=== PATIENT | female | born 1950 | race Caucasian/White ===

== ENCOUNTER 2017-03-22 15:38 | Observation (INO) | payer MEDICARE ==
[2017-03-22] MEDS ORDERED: Ondansetron HCl/PF 4 MG/2 ML Vial ONE (16:17)
[2017-03-22 17:18] LABS: Troponin I Less than 0.010 ng/mL (< 0.028)
[2017-03-22] MEDS ORDERED: ISOVUE-370 76%-LOCM 1 ML ONE (17:36)
[2017-03-22 20:31] LABS: Troponin I Less than 0.010 ng/mL (< 0.028)
[2017-03-22] MEDS ORDERED: Fentanyl 100 MCG/2 ML VIAL ONE (23:19)
--- NOTE | 2017-03-22 23:52 | CT ---
CT PULMONARY ANGIOGRAM WITH IV CONTRAST AND 3D POSTPROCESSIN03/22/17 HISTORY: Left sided chest pain. FINDINGS: There is good contrast opacification of pulmonary arterial vasculature without filling defects to sug gest pulmonary embolism. The thoracic aorta is well opacified without aneurysmal dissection. No pleur al or pericardial effusions are seen. No pneumothoraces, lobar consolidation or lung bases are identi fied. There are mild patchy ground glass densities in the lower lung aldana. There are degenerative c hanges in the spine. IMPRESSION: No CT evidence of pulmonary embolism. POS: CHEKO
[2017-03-23 00:43] LABS: Troponin I Less than 0.010 ng/mL (< 0.028)
[2017-03-23] MEDS ORDERED: Nitroglycerin 0.4 MG TAB (25 Tab Bottle) PO PRN (03:49)
[2017-03-23] MEDS ORDERED: Aspirin 325 MG TAB PO SCH (04:00)
[2017-03-23 05:14] LABS: Troponin I Less than 0.010 ng/mL (< 0.028)
--- NOTE | 2017-03-23 06:39 | HP ---
CHIEF COMPLAINT: Chest pain for last 3 days. HISTORY OF PRESENT ILLNESS: She is a 66-year-old woman with a history of coronary artery disease, st atus post stent placement so many years ago and ME in 2004. She came in because of having some chest pain for the last 3 days. The pain is like achy pain on the left side, squeezy pain, 3/10, pain rad iated to the left arm, and pain comes and goes. Pain does increase with exertion. No shortness of b reath, no diaphoresis. Because of this, the patient has decided to come to ER. When she came to ER, her blood pressure 129/81, pulse 64, respirations 18, temperature is 98.0. In the ER, she was given nitroglycerin, aspirin first. Her pain continued to be occurred. HOME MEDICATIONS: Crestor 40 mg daily, glipizide 10 mg daily, lisinopril 20 mg daily, Plavix 75 nirmala y, metformin 500 daily, Januvia 100 mg daily, aspirin 325 daily. PAST MEDICAL HISTORY: History of myocardial infarction in the past, hypertension. PAST SURGICAL HISTORY: Appendectomy, . SOCIAL HISTORY: No alcohol use, no drug use, no smoking history. In the ER, medicine given was fentanyl injection and Zofran for the vomiting. FAMILY HISTORY: Noncontributory. REVIEW OF SYSTEMS: Constitutional: No fever, no chills. Eyes: No vision change. ENT: No sore throat, no earache. Cardiovascular: She does have chest pain, left side. No dyspnea on exertion, no palpitation. Respiratory: No cough, no short of breath. Gastrointestinal: No constipation, no nausea, no vomiting. Musculoskeletal: No back pain. Neurolo gic: She has some dizziness, no headache, no blurry vision. PHYSICAL EXAMINATION: GENERAL: When I examined her, she is a middle-aged woman lying in the bed, not in distress. VITAL SIGNS: Pulse of 69, blood pressure 107/52, respirations 20, temperature 98.4. HEENT: Head is atraumatic, normocephalic. Pupils are round and reactive. Extraocular muscles are i ntact. Ears, throat normal. Tongue mucosa moist. NECK: Supple, no JVD, no thyromegaly, no carotid bruit. CHEST: Normal vesicular breathing, no added sound. CARDIOVASCULAR: S1, S2 audible. No S3, S4. ABDOMEN: Soft. Bowel sounds audible, no organomegaly, no guarding or rigidity. EXTREMITIES: No pedal edema. No cyanosis or clubbing. LABORATORY AND X-RAY FINDINGS: EKG shows sinus bradycardia at 55, nonspecific T wave inversions. He r lab shows D-dimer 0.9, troponin 0.010. CTA chest shows no evidence of pulmonary embolism. ASSESSMENT AND PLAN: Unstable angina. PLAN: We plan to admit into the hospital to rule ACS, serial troponins, serial echocardiogram. Love nox 1 mg/kg daily, aspirin, Plavix, statin, and beta jermaine. Cardiology will be consulted. IV morp jorge luis and nitroglycerin for the pain. DVT prophylaxis, SCDs and Lovenox.
[2017-03-23] MEDS ORDERED: Clopidogrel Bisulfate 75 MG TAB ONE (10:40)
[2017-03-23] MEDS ORDERED: Aspirin 325 MG TAB ONE (10:40)
[2017-03-23] MEDS ORDERED: Metoprolol Tartrate 25 MG TAB ONE (10:40)
[2017-03-23 11:46] VITALS: BMI 26.6
[2017-03-23] MEDS: Aspirin 325 MG TAB PO SCH (11:47)
[2017-03-23] MEDS: Clopidogrel Bisulfate 75 MG TAB PO SCH (11:47)
[2017-03-23] MEDS: Metoprolol Tartrate 25 MG TAB PO SCH ×2 (11:48→22:16)
--- NOTE | 2017-03-23 13:30 | PDOC.EVN ---
Event Note - Event Note Event Note: Patient sen today, Alert snd oriented, Admitted with Chest pain, Likely pleuritic, Cardiology is consulted waiting on his Plan. Reviewed all the labs and Vitals. Tropoinins are negative. Echo is pending. Likely pt Discharge home tomorrow.
[2017-03-23] MEDS ORDERED: Communication Order-Pharmacy FS SCH (14:15)
[2017-03-23] MEDS ORDERED: Sodium Chloride 0.9% 1,000 ML IV SCH (14:15)
[2017-03-23] MEDS ORDERED: FLU VACC TS2017-18 (>65YR) 0.5 ML SYRINGE IM ONE (14:15)
--- NOTE | 2017-03-23 14:25 | CON ---
DATE OF CONSULTATION: 03/23/2017 REASON FOR CONSULTATION: Unstable angina. Please refer to Dr. Sow's note for full details. Briefly, Ms. Read is a very pleasant 66-year-old woman who has been seen and evaluated by Dr. Eugene De Los Santos. Her last angiogram was performed 7 years ago. She has had a stent placed in the LAD. She recently presented with chest pain over the last 3-4 days. Pain occurred at rest, lasting 5-7 mi nutes. It was severe in nature intermittently. She also had radiation to her neck and jaw as well a s associated nausea, vomiting. She continues to have mild discomfort. Her CK and troponins have bee n negative. Please refer to past medical history per Dr. Sow. PHYSICAL EXAMINATION: GENERAL: Patient is a pleasant female who is in no acute distress. The patient appears her stated a ge. VITAL SIGNS: Blood pressure 115/54, pulse 54, temperature 98.1. NEUROLOGIC: The patient is alert and oriented times 3 with no focal neurologic deficits. HEENT: Sclerae without icterus. Mouth has moist mucous membranes with normal pallor. NECK: No JVD. Carotid upstroke brisk. No bruits bilaterally. LUNGS: Clear to auscultation with unlabored respirations. BACK: No scoliosis or kyphosis. CARDIAC: Regular rate and rhythm with normal S1 and S2. No S3 or S4 noted. No significant rubs, mu rmurs, thrills, or gallops noted throughout the precordium. PMI is not displaced. There is no teja ternal heave. ABDOMEN: Soft, nontender, nondistended. No peritoneal signs present. No hepatosplenomegaly. No abnormal striae. EXTREMITIES: 2+ femoral and 2+ dorsalis pedis pulses. No cyanosis, clubbing, or edema. SKIN: No gross abnormalities. PERTINENT LABORATORY DATA AND IMAGING DATA: 1. CK and troponin negative. 2. EKG showed normal sinus rhythm with biphasic T waves noted in lead V5. IMPRESSION: Unstable angina. RECOMMENDATIONS: Ms. Read symptoms certainly suggest a cardiac origin. She has a history of CAD, s tatus post stent placement. She has abnormal EKG. We would therefore recommend coronary angioplasty , possible PCI. I discussed the procedure in full detail with Ms. Read. The risks included but are not limited to the following: , stroke, MN, need for emergency surgery, loss of limb, bleeding , and infection, as well as a reaction to the dye causing kidney failure and needing long-term dialys is. I also discussed the risks of PCI to include all of the above including coronary dissection and perforation in addition to acute stent thrombosis and restenosis. All questions about the procedure were answered. Given the above, the patient agreed to proceed with coronary angiography and possible PCI. I also discussed drug-coated versus nondrug coated stent placement. There are no contraindica tions to proceed if needed. Further recommendations depending above.
--- NOTE | 2017-03-23 14:51 | CON-2 ---
DATE OF CONSULTATION: 03/23/2017 DATE OF ADMISSION: 03/22/2017 CHIEF COMPLAINT: Chest pain. HISTORY OF PRESENT ILLNESS: The patient is a 66-year-old female with past history of coronary artery disease with 1 stent to the LAD, history of hypertension, diabetes mellitus type 2, who presented as a transfer from the [facility] for intermittent chest pain for the past 3 days. The patient states that the chest pain occurs every 2-3 hours and lasts several minutes at a time. She states that the pain is dull/squeezing in nature and ranges anywhere from 4-10/10 in intensity. The pain is left-sided and radiates into her neck. Pain occurs without provocation. She states that there are no exacerbating or alleviating factors. The patient states that this pain feels different from her prior heart attack that she had in 2007. Patient underwent percutaneous coronary intervention in 2007 at this hospital. She had an episode of chest pain in 2015 and underwent having abnormal nuclear medicine stress test at that time. Prior to transfer to the hospital, she received 4000 units of heparin, 325 mg of aspirin and morphine 4 mg. She received fentanyl 15 mcg and Zofran 8 mg after transfer. PAST MEDICAL HISTORY: 1. Coronary artery disease with one stent to the LAD. 2. Diabetes mellitus type 2. 3. Hypertension. PAST SURGICAL HISTORY: 1. Appendectomy. 2. C-sections. ALLERGIES: 1. FLAGYL. 2. BIAXIN. MEDICATIONS: 1. Crestor 40 mg. 2. Glipizide 10 mg b.i.d. 3. Lisinopril 20 mg daily. 4. Plavix 75 mg daily. 5. Metformin 500 mg b.i.d. 6. Januvia 100 mg daily. 7. Aspirin 325 mg daily. 8. Multivitamin. FAMILY HISTORY: Patient's father had a stroke. SOCIAL HISTORY: The patient is a nonsmoker currently. She smokes 1 pack per day for 2-3 years and quit 5-6 years ago. She denies alcohol or drug use. REVIEW OF SYSTEMS: Pertinent systems include chest pain, nausea, vomiting, dizziness associated with her chest pain. All other review of systems are negative. PHYSICAL EXAMINATION: VITAL SIGNS: Blood pressure 109/55, pulse 62, respirations 18, T-max 98.1, pulse ox 97% on room air, weight 70 kilograms. GENERAL: The patient is alert and oriented x3 in no apparent distress. She is well-developed, well-nourished, appropriately interactive. EYES: Pupils are equal, round, and reactive to light. Extraocular muscles are intact. OROPHARYNX: Examination of the oropharynx reveals moist mucous membranes. NECK: Supple, no thyromegaly. CARDIOVASCULAR: Regular rate and rhythm with no murmurs or gallops. Radial and pedal pulses 2+. RESPIRATORY: Lungs are clear to auscultation bilaterally. SKIN: Warm and dry with no cyanosis or lesions. ABDOMEN: Soft, however, tender to palpation in the epigastrium and right lower quadrants. No guarding or rebound tenderness. No masses, distention or organomegaly. EXTREMITIES: No clubbing, cyanosis or edema. MUSCULOSKELETAL: Structure and tone within normal limits. NEUROLOGIC: Cranial nerves II through XII intact grossly. No focal deficits. LABORATORY DATA: Troponin negative x3. D-dimer 0.97. IMAGING: CTA with contrast was negative for pulmonary embolism. ASSESSMENT AND PLAN: The patient is a 66-year-old female with a history of coronary artery disease, diabetes and hypertension who presents with 3 days of chest pain. 1. Acute coronary syndrome rule-out. The patient's symptoms consistent with anginal chest pain. We will proceed for left heart catheterization today. Risks and benefits discussed extensively with the patient and the patient was given her consent. Continue medical management. If left heart catheterization is negative, other causes for chest pain can be pursued. MTDD
[2017-03-23] MEDS ORDERED: Midazolam HCl 2 mg/2 ml Vial ONE (14:59)
[2017-03-23] MEDS ORDERED: Acetaminophen/Codeine 30-300mg Tablet PO PRN ×2 (15:21)
[2017-03-23] MEDS ORDERED: traMADol HCl 50 MG TAB PO PRN (15:21)
[2017-03-23] MEDS ORDERED: Nitroglycerin 0.4 MG TAB (25 Tab Bottle) SL PRN (15:21)
[2017-03-23] MEDS ORDERED: Sodium Chloride 0.9% 200 ML IV PRN (15:30)
[2017-03-23] MEDS ORDERED: Iopamidol 370 76% 100 ML VIAL ONE (15:51)
[2017-03-23] MEDS: Sodium Chloride 0.9% 1,000 ML IV SCH ×2 (16:00→22:40)
[2017-03-24 05:21] LABS: Cardiac Risk 3.9 (Less than 4.5)
[2017-03-24] MEDS: Sodium Chloride 0.9% 1,000 ML IV SCH (06:50)
[2017-03-24] MEDS: Aspirin 325 MG TAB PO SCH (07:58)
[2017-03-24] MEDS: Clopidogrel Bisulfate 75 MG TAB PO SCH (07:58)
[2017-03-24] MEDS: Metoprolol Tartrate 25 MG TAB PO SCH (08:03)
[2017-03-24 09:23] VITALS: BP 133/63; TEMP 98.5
--- NOTE | 2017-03-24 12:16 | PRG ---
DATE OF SERVICE: 03/24/2017 SUBJECTIVE: Ms. Read is doing better today. She underwent cardiac catheterization yesterday by Dr. Dawson. She had no flow limiting disease in any of the major epicardial arteries. She does have a disease in her diagonal branch, really too small to stent. The patient will go home with all the medicines she came on in addition to nitroglycerin if needed. OBJECTIVE: VITAL SIGNS: Her blood pressure is 133/63, pulse 64, regular. LUNGS: Clear. CARDIAC: Normal S1 and S2. ABDOMEN: Soft, nontender. EXTREMITIES: There is no edema. ASSESSMENT: 1. Coronary disease, best treated medically 2. Hypercholesterolemia, being treated. 3. Episode of angina, probably related to the diagonal branch. She has been given nitroglycerin to take as needed, asked to see me in 2-3 months.
--- NOTE | 2017-03-24 13:07 | DIS ---
DATE OF ADMISSION: 03/23/2017 DATE OF DISCHARGE: 03/24/2017 ADMITTING DIAGNOSIS: Acute chest pain. DISCHARGE DIAGNOSIS: Acute chest pain, noncardiac. SECONDARY DIAGNOSES: 1. Bradycardia. 2. Unstable angina. 3. Hypertension. 4. Type 2 diabetes mellitus. 5. History of coronary artery disease. CONSULTANTS: Involved in the care are Dr. Hugo Dawson and Dr. Elizabeth Sow. HISTORY OF PRESENT ILLNESS AND HOSPITAL COURSE: In brief, this is a 66-year-old white female, who hutchins s a past history of coronary artery disease with 1 stent to the LAD, history of hypertension, type 2 diabetes mellitus, who presented to the ER after being transferred from [facility] with intermit tent chest pains. The patient was closely monitored while she was in the ER whole yesterday, and erika sely monitored for her persistent chest pains and had negative troponins. The patient underwent PTCA in 2007, during which she had a stent in the past. So, because of this, she was closely monitored a nd Cardiology was also consulted. Patient had a chest pain in 2015 and had an abnormal nuclear stres s test at that time. Patient had again a nuclear stress test done today after monitoring her serial troponins overnight, which was unremarkable, and there was no evidence of any further intervention. So, Cardiology decided to discharge the patient home to have a close followup as an outpatient. PHYSICAL EXAMINATION: On the day of discharge: VITAL SIGNS: Blood pressure is 133/63, heart rate is 65, respiratory rate 16, saturation 97%. GENERAL: The patient is moderately built and moderately nourished. CARDIOVASCULAR: S1, S2 normal. No murmurs, no rubs, no gallops. LUNGS: Bilateral air entry was equal. No wheezing, no crackles. ABDOMEN: Soft, nontender, no guarding, no rebound tenderness. Bowel sounds normal. MUSCULOSKELETAL: No calf tenderness. No pedal edema. No joint tenderness, no joint swelling. HOME MEDICATIONS: 1. Aspirin 325 p.o. daily. 2. Biotin. 3. Cholecalciferol. 4. Plavix 75 mg daily. 5. Glipizide 20 mg p.o. b.i.d. 6. Iron 27 mg p.o. daily. 7. Lisinopril 2.5 mg p.o. daily. 8. Lutein 20 mg p.o. daily. 9. Metformin 500 mg p.o. b.i.d. 10. Rosuvastatin 40 mg p.o. at bedtime. 11. Sitagliptin 100 mg p.o. daily. 12. Vitamin B complex. 13. Zinc 50 mg p.o. daily. DISCHARGE INSTRUCTIONS: Continue activity as tolerated. Advised to follow up with the primary care physician in 1 week and advised to follow up with Cardiology in 4 weeks. Continue with a cardiac and diabetic diet. I spent 30 minutes with this patient.
== END 2017-03-24 12:45 | disposition home or self-care (01) ==
LOC: ERS 15:38 → ERHOLD 03-23 00:15 → 2SW 03-23 00:15
PROVIDERS: ADMIT Family Medicine; ATTEND Family Medicine
DX: R07.89 Other chest pain (principal); I25.110 Atherosclerotic heart disease of native coronary artery with unstable angina pectoris; I10 Essential (primary) hypertension; I25.2 Old myocardial infarction; E78.00 Pure hypercholesterolemia, unspecified; E11.9 Type 2 diabetes mellitus without complications; Z87.891 Personal history of nicotine dependence; Z82.3 Family history of stroke; Z79.82 Long term (current) use of aspirin; Z79.84 Long term (current) use of oral hypoglycemic drugs; Z79.899 Other long term (current) drug therapy; Z88.1 Allergy status to other antibiotic agents; Z95.5 Presence of coronary angioplasty implant and graft; Z90.49 Acquired absence of other specified parts of digestive tract; Z98.890 Other specified postprocedural states
CPT/HCPCS: 71275; 80061; 84484 ×2; 85379; 90732; 93005; 93306; 93454; 93798; 94760 ×2; 96361 ×2; 96374; 96375; 99285; G0008; G0009; G0378 ×2; Q2036; 36415; 90471; 90682; A4216; J1644; J2250; J2405; J3010

== ENCOUNTER 2017-06-05 10:42 | Emergency (ER) | payer MEDICARE, MEDICAID ==
[2017-06-05] MEDS ORDERED: Morphine 4 MG/ML VIAL ONE (11:43)
[2017-06-05] MEDS ORDERED: Ondansetron HCl/PF 4 MG/2 ML Vial ONE (11:44)
[2017-06-05] MEDS ORDERED: Pantoprazole 40 MG VIAL ONE (11:44)
[2017-06-05 11:49] LABS: #Basophils 0.1 thou/uL (0.0-0.2); #Eosinphils 0.2 thou/uL (0.0-0.7); #Lymphocytes 3.3 thou/uL (1.20-3.40); #Monocytes 0.5 thou/uL (0.11-0.59); #Neutrophils 5.2 thou/uL (1.40-6.50); %Basophils 0.9 % (0.0-1.0); %Eosinophils 1.7 % (0.0-10.0); %Lymphocytes 35.4 % (21.0-51.0); %Monocytes 5.2 % (0.0-10.0); %Neutrophils 56.8 % (42.0-75.0); Hemoglobin 12.5 g/dL (12.0-16.0); Mean Corpuscular HGB CONC 31.7 g/dL (32.0-36.0); Mean Corpuscular Hemoglobin 29.4 pg (27.0-31.0); Mean Corpuscular Volume 92.7 fl (81.0-99.0); Mean Platelet Volume 7.3 fL (7.4-10.4); Platelet Count 216 thou/uL (130-400); RBC Distribution Width 12.7 % (11.5-14.5); Red Blood Cell (RBC) Count 4.25 mill/uL (4.20-5.40); White Blood Cell (WBC) Count 9.2 thou/uL (4.8-10.8)
[2017-06-05 12:09] LABS: ALT (SGPT) 25 U/L (8-55); AST (SGOT) 21 U/L (5-34); Albumin 4.2 g/dL (3.4-4.8); Alkaline Phosphatase 70 U/L (40-150); Anion Gap 12 mmol/L (10-20); BUN (Urea Nitrogen) 18 mg/dL (9.8-20.1); Bilirubin, Total 0.3 mg/dL (0.2-1.2); Calc. Creatinine Clearance 0 mL/min (70-130); Calcium 9.3 mg/dL (7.8-10.44); Carbon Dioxide 25 mmol/L (23-31); Chloride 101 mmol/L (98-107); Estimated GFR-MDRD 53; Globulin 3.3 g/dL (2.4-3.5); Glucose 374 mg/dL (80-115); Lipase 56 U/L (8-78); Potassium 4.3 mmol/L (3.5-5.1); Protein, Total 7.5 g/dL (6.0-8.3); Sodium 134 mmol/L (136-145)
[2017-06-05 13:01] LABS: Bilirubin Negative (Negative); Blood, Urine Negative (Negative); Clarity CLEAR (Clear); Glucose, Urine (Dipstick) >=1000 mg/dL (Negative); Leukocyte Negative (Negative); Nitrite Negative (Negative); Protein, Urine (Dipstick) Negative (Neg-Trace); Specific Gravity, Urine 1.029 (1.002-1.036); Urobilinogen 0.2 mg/dL (0.2-1.0); pH, Urine 5.5 (5.0-9.0)
--- NOTE | 2017-06-05 14:17 | ULT ---
RIGHT UPPER QUADRANT ULTRASAOUND: Date: 06/05/17 PROVIDED CLINICAL HISTORY: Right upper quadrant pain. FINDINGS: Correlation is made with the CT examination dated 06/02/17. The liver demonstrates no mass or intrahepatic biliary ductal dilatation. The common duct is not dila camilla. The gallbladder demonstrates no stones, wall thickening, or pericholecystic fluid. There is a qu estioned hypervascular mass seen at the fundus of the gallbladder. Equivocal altered CT density is se en in this location on the CT of 06/02/17. Visualized portions of the pancreas appear normal. The right kidney demonstrates no hydronephrosis or mass. The abdominal aorta and IVC appear normal. IMPRESSION: 1. No evidence for gallstones or findings to suggest acute cholecystitis. 2. Possible hypervascular mass involving the fundus of the gallbladder. Correlation with nonemergent MRI of the abdomen with and without IV contrast recommended. POS: CHEKO
== END 2017-06-05 13:42 | disposition home or self-care (01) ==
LOC: ERS 10:42
DX: N20.1 Calculus of ureter (principal); E11.9 Type 2 diabetes mellitus without complications; E78.5 Hyperlipidemia, unspecified; Z79.899 Other long term (current) drug therapy; Z79.82 Long term (current) use of aspirin; Z79.84 Long term (current) use of oral hypoglycemic drugs
CPT/HCPCS: 36415; 76705; 80053; 81003; 83690; 85025; 96361; 96374; 96375; C9113; J2270; J2405

== ENCOUNTER 2017-09-21 07:49 | Day surgery (SDC) | payer MEDICARE, MEDICAID ==
[2017-09-20 11:14] VITALS: BMI 25.7
--- NOTE | 2017-09-21 03:14 | HP ---
DATE OF ADMISSION: 09/21/2017 HISTORY OF PRESENT ILLNESS: This is a 66-year-old female who comes in the GI clinic for colonoscopy. The patient has abdominal pain over the last several weeks. She also complains of chronic diarrhea . The stools are watery. She has had no fever, no rectal bleeding. The patient's ultrasound, which came back negative for any gallstones. The patient comes in today for EGD for abdominal pain and al so colonoscopy for chronic diarrhea. ALLERGIES: None. SOCIAL HISTORY: The patient is a former smoker. Does not drink alcohol. MEDICAL ILLNESSES: 1. Hypertension. 2. Hyperlipidemia. 3. Diabetes. 4. Coronary artery disease. 5. Chronic acid reflux. 6. Colon polyp. 7. Appendectomy. 8. Hysterectomy. 9. Back surgery. 10. Coronary artery stent placement. PHYSICAL EXAMINATION: VITAL SIGNS: Pulse is 70, blood pressure 140/76. HEENT: Conjunctivae clear. CARDIOVASCULAR: First and second heart sounds normal. LUNGS: Clear to auscultation. ABDOMEN: Soft to palpate. No organomegaly. Abdomen is tender over the epigastric area. No rebound or guarding. ADMITTING DIAGNOSES: 1. Abdominal pain 2. History of chronic diarrhea. PLAN: EGD and colonoscopy.
--- NOTE | 2017-09-21 12:27 | OP ---
DATE OF PROCEDURE: 09/21/2017 SURGEON: Wilton George M.D. OPERATIVE PROCEDURE: Colonoscopy with biopsy. PREOPERATIVE DIAGNOSIS: The patient is a 66-year-old female with chronic diarrhea. The st ool studies are negative. She is undergoing colonoscopy. POSTOPERATIVE DIAGNOSES: 1. Severe sigmoid diverticular disease. 2. No colitis seen. The mucosa appeared normal throughout the colon. 3. Hemorrhoids. PROCEDURE NOTE: The patient was placed on her left lateral position and was given sedation by Anesth esia Department. A rectal exam was done before the scope was advanced into the rectum. No lesions w ere felt on rectal exam. A Pentax video colonoscope was introduced into the rectum and advanced all the way to cecum. The prep was very good. The mucosa appeared normal. The patient had a spastic co giulia. The appendical orifice, ileocecal valve, cecum, no pathology seen. The ascending colon, hepati c flexure, transverse colon, descending colon, no pathology seen. The sigmoid colon showed scattered diverticular disease. Retroflexion of the scope in the rectum showed hemorrhoids. Random biopsies obtained from the ascending colon, transverse colon, sigmoid colon to rule out microscopic colitis.
--- NOTE | 2017-09-21 12:32 | OP ---
DATE OF PROCEDURE: 09/21/2017 SURGEON: Wilton George M.D. OPERATIVE PROCEDURE: Esophagogastroduodenoscopy with biopsy. PREOPERATIVE DIAGNOSES: Abdominal pain, chronic acid reflux. POSTOPERATIVE DIAGNOSES: 1. Shallow ulcer over the gastric antrum. 2. Small ulcer in the duodenal bulb. 3. Esophageal ulcer, esophagitis. PROCEDURE IN DETAIL: The patient was placed on her left lateral position and was given sedation by A nesthesia Department. A Pentax video gastroscope under direct vision was passed down the oropharynx, past the GE junction, into the stomach and subsequently descending duodenum. The esophageal mucosa appeared normal over the upper two-thirds. Over the distal esophagus, the patient found to have ulce ration and esophagitis. Biopsy obtained from the area. The fundus and cardia, no pathology seen. T he gastric body appeared healthy, no pathology seen. Over the gastric antrum the patient found to hutchins ve an ulceration that appears very shallow. The duodenal bulb showed 2 small ulcerations. The desce nding duodenum, no pathology seen. Biopsy from the gastric antrum and gastric body. Also, biopsy fr om the distal esophagus. The stomach was decompressed and scope removed. DISCHARGE PLANNIN. This is a 66-year-old female who came in for an EGD for abdominal pain and chronic diar unique. The colonoscopy showed no colitis. The EGD showed a gastric ulcer. 2. Small ulcer in the duodenal bulb and esophageal ulcer. DISCHARGE RECOMMENDATIONS: 1. Will start the patient on omeprazole 40 once a day. 2. Await gastric biopsy and also colonic biopsy. If the colonic biopsy shows evidence of microscopi c colitis we will treat accordingly.
[2017-09-21] MEDS ORDERED: Lidocaine 1% PF 5 ML VIAL ONE (13:09)
[2017-09-21] MEDS ORDERED: PROPOFOL 200 MG/20 ML VIAL ONE (13:09)
== END 2017-09-21 11:40 | disposition home or self-care (01) ==
LOC: SDC 07:49
PROVIDERS: ATTEND Internal Medicine Gastroenterology
PROC: 0DBK8ZX Excision of Ascending Colon, Via Natural or Artificial Opening Endoscopic, Diagnostic (ICD-10-PCS; principal; 2017-09-21)
PROC: 0DBL8ZX Excision of Transverse Colon, Via Natural or Artificial Opening Endoscopic, Diagnostic (ICD-10-PCS; 2017-09-21)
PROC: 0DBN8ZX Excision of Sigmoid Colon, Via Natural or Artificial Opening Endoscopic, Diagnostic (ICD-10-PCS; 2017-09-21)
PROC: 0DB58ZX Excision of Esophagus, Via Natural or Artificial Opening Endoscopic, Diagnostic (ICD-10-PCS; 2017-09-21)
PROC: 0DB68ZX Excision of Stomach, Via Natural or Artificial Opening Endoscopic, Diagnostic (ICD-10-PCS; 2017-09-21)
DX: K52.9 Noninfective gastroenteritis and colitis, unspecified (principal); K64.9 Unspecified hemorrhoids; K21.0 Gastro-esophageal reflux disease with esophagitis; K25.9 Gastric ulcer, unspecified as acute or chronic, without hemorrhage or perforation; K26.9 Duodenal ulcer, unspecified as acute or chronic, without hemorrhage or perforation; I10 Essential (primary) hypertension; E78.5 Hyperlipidemia, unspecified; E11.9 Type 2 diabetes mellitus without complications; I25.10 Atherosclerotic heart disease of native coronary artery without angina pectoris; Z95.5 Presence of coronary angioplasty implant and graft; Z88.1 Allergy status to other antibiotic agents; Z88.8 Allergy status to other drugs, medicaments and biological substances
CPT/HCPCS: 88305; 88312; 88313; J2001; J2704

== ENCOUNTER 2018-11-04 13:17 | Emergency (ER) | payer MEDICARE ==
[~2018-11-04 13:17] MED LIST: ISOVUE-370 76%-LOCM 1 ML ONE
[2018-11-04 14:17] LABS: #Eosinphils 0.1 thou/uL (0.0-0.7); #Lymphocytes 2.4 thou/uL (1.20-3.40); #Monocytes 0.9 thou/uL (0.11-0.59); #Neutrophils 9.9 thou/uL (1.40-6.50); %Basophils 0.3 % (0.0-1.0); %Eosinophils 0.5 % (0.0-10.0); %Monocytes 6.9 % (0.0-10.0); %Neutrophils 74.2 % (42.0-75.0); Hemoglobin 13.5 g/dL (12.0-16.0); Mean Corpuscular HGB CONC 33.3 g/dL (32.0-36.0); Mean Corpuscular Hemoglobin 31.6 pg (27.0-31.0); Mean Corpuscular Volume 94.9 fL (78.0-98.0); Platelet Count 239 thou/uL (130-400); RBC Distribution Width 12.8 % (11.5-14.5); Red Blood Cell (RBC) Count 4.28 mill/uL (4.20-5.40); White Blood Cell (WBC) Count 13.3 thou/uL (4.8-10.8)
[2018-11-04] MEDS ORDERED: Morphine 4 MG/ML VIAL ONE (14:20)
[2018-11-04] MEDS ORDERED: Ondansetron PF 4 MG/2 ML Vial ONE (14:20)
[2018-11-04 14:28] LABS: Bilirubin Negative (Negative); Blood, Urine Negative (Negative); Clarity Clear (Clear); Glucose, Urine (Dipstick) Normal (Negative); Leukocyte Negative Leu/uL (Negative); Nitrite Negative (Negative); Protein, Urine (Dipstick) 20 mg/dL (Neg-Trace); Urobilinogen Normal mg/dL (Less than 2)
[2018-11-04 14:38] LABS: ALT (SGPT) 17 U/L (8-55); AST (SGOT) 18 U/L (5-34); Albumin 4.2 g/dL (3.4-4.8); Alkaline Phosphatase 86 U/L (40-150); Anion Gap 15 mmol/L (10-20); BUN (Urea Nitrogen) 15 mg/dL (9.8-20.1); Bilirubin, Total 0.6 mg/dL (0.2-1.2); Calc. Creatinine Clearance 0 mL/min (70-130); Calcium 9.6 mg/dL (7.8-10.44); Carbon Dioxide 23 mmol/L (23-31); Chloride 101 mmol/L (98-107); Estimated GFR-MDRD 50; Globulin 3.7 g/dL (2.4-3.5); Glucose 164 mg/dL (80-115); Lipase 14 U/L (8-78); Protein, Total 7.9 g/dL (6.0-8.3); Sodium 135 mmol/L (136-145)
--- NOTE | 2018-11-04 15:19 | CT ---
EXAM: CT ABDOMEN AND PELVIS HISTORY: Pain. COMPARISON: 05/06/2016 Procedure: Multiple contiguous axial images were obtained and a CT of the abdomen and pelvis with IV contrast. C oronal reformats were performed. FINDINGS: Lower Chest: within normal limits. Vessels: Normal caliber aorta Heart: Normal heart size Abdomen: Portal vein:Patent Gallbladder: No calcified gallstones. Normal caliber wall. Liver: within normal limits. Pancreas: within normal limits. Spleen: within normal limits. Adrenals: within normal limits. Kidneys: Symmetric enhancement. Bilaterally no obstructive uropathy Peritoneum: No free air. Small amount of fluid tracking along the left paracolic gutter with strandin g of the left abdominal mesentery, adjacent to the descending colon. Bowel: Limited evaluation due to technique. No evidence of small bowel obstruction. Ileocecal junctio n is unremarkable. Appendix is not appreciated. Scattered fecal material throughout the colon. The right hemicolon is unremarkable. There is extensive mucosal thickening throughout the descending colo n and sigmoid colon likely due to inadequate distention. Extensive diverticulosis. There is bowel wall thickening with pericolonic fat stranding involving the mid descending colon, compatible with di verticulitis. No evidence of abscess or perforation. Mesentery and Retroperitoneum: Mildly enlarged left lower quadrant mesenteric lymph nodes. Abdominal Wall: within normal limits. Pelvis: Reproductive Organs: Surgically absent uterus Pelvis: within normal limits. Bladder: within normal limits. Bones: within normal limits. IMPRESSION: 1. Diverticulitis involving the mid descending colon. No evidence of abscess or perforation. 2. Bowel wall thickening involving the left hemicolon which is presumed to be reactive. Colonoscopy s hould be performed after acute bowel inflammation resolved to exclude underlying mass.
== END 2018-11-04 16:00 | disposition home or self-care (01) ==
LOC: ERS 13:17
DX: K57.32 Diverticulitis of large intestine without perforation or abscess without bleeding (principal); E11.9 Type 2 diabetes mellitus without complications; I10 Essential (primary) hypertension; I25.2 Old myocardial infarction; Z95.5 Presence of coronary angioplasty implant and graft; E78.00 Pure hypercholesterolemia, unspecified; Z79.01 Long term (current) use of anticoagulants; Z79.82 Long term (current) use of aspirin; Z79.84 Long term (current) use of oral hypoglycemic drugs; Z79.899 Other long term (current) drug therapy
CPT/HCPCS: 74177; 80053; 81003; 83690; 85025; 96361; 96374; 96375; J2270; J2405; Q9966

== ENCOUNTER 2020-01-16 19:02 | Emergency (ER) | payer MEDICARE ==
[~2020-01-16 19:02] MED LIST changes: -ISOVUE-370 76%-LOCM 1 ML ONE; +Iopamidol-370 76% 500 ML 1 ML ONE
[2020-01-16 19:40] LABS: #Basophils 0.1 thou/uL (0.0-0.2); #Eosinphils 0.1 thou/uL (0.0-0.7); #Lymphocytes 3.1 thou/uL (1.20-3.40); #Monocytes 0.4 thou/uL (0.11-0.59); #Neutrophils 4.9 thou/uL (1.40-6.50); %Eosinophils 1.4 % (0.0-10.0); %Lymphocytes 35.7 % (21.0-51.0); %Monocytes 5.2 % (0.0-10.0); %Neutrophils 56.8 % (42.0-75.0); Hemoglobin 13.7 g/dL (12.0-16.0); Mean Corpuscular Hemoglobin 33.2 pg (27.0-31.0); Mean Corpuscular Volume 94.7 fL (78.0-98.0); Mean Platelet Volume 7.7 fL (7.4-10.4); Platelet Count 170 thou/uL (130-400); RBC Distribution Width 12.3 % (11.5-14.5); Red Blood Cell (RBC) Count 4.12 mill/uL (4.20-5.40); White Blood Cell (WBC) Count 8.6 thou/uL (4.8-10.8)
[2020-01-16 20:10] LABS: ALT (SGPT) 25 U/L (8-55); AST (SGOT) 28 U/L (5-34); Albumin 4.4 g/dL (3.4-4.8); Alkaline Phosphatase 80 U/L (40-110); Anion Gap 15 mmol/L (10-20); BUN (Urea Nitrogen) 9 mg/dL (9.8-20.1); Bilirubin, Total 0.4 mg/dL (0.2-1.2); Calc. Creatinine Clearance 0 mL/min (70-130); Calcium 9.4 mg/dL (7.8-10.44); Carbon Dioxide 26 mmol/L (23-31); Chloride 99 mmol/L (98-107); Estimated GFR-MDRD 58; Globulin 3.8 g/dL (2.4-3.5); Glucose 123 mg/dL (80-115); Lipase 124 U/L (8-78); Potassium 3.7 mmol/L (3.5-5.1); Protein, Total 8.2 g/dL (6.0-8.3); Sodium 136 mmol/L (136-145)
[2020-01-16] MEDS ORDERED: Morphine 4 MG/ML VIAL ONE (20:16)
[2020-01-16] MEDS ORDERED: Ondansetron PF 4 MG/2 ML Vial ONE ×3 (20:16→21:04)
--- NOTE | 2020-01-17 07:29 | CT ---
CT ABDOMEN AND PELVIS: Date: 01/16/2020 COMPARISON: 03/01/2019. HISTORY: Pain. TECHNIQUE: Axial CT imaging at 5 mm intervals from lung bases through pubic symphysis with IV contrast. Coronal and sagittal reformatted imaging obtained. FINDINGS: Mild patchy areas of ground-glass opacity noted within the partially imaged lung bases, including the right middle lobe and the left lower lobe. Findings may be related to atypical infectious pneumoniti s, such as COVID-19. Opacity within the lung bases is new when compared to the prior exam. No free intraperitoneal air or fluid is seen. The liver, gallbladder, spleen, pancreas, adrenal glands, and kidneys demonstrate no acute findings. Evaluation of the bowel is limited without oral contrast media. There is extensive diverticulosis of the descending colon and the sigmoid colon. There is mild wall prominence involving the sigmoid colon with no significant pericolonic fat stranding. No evidence for bowel obstruction. There is scattered atherosclerotic calcification of the infrarenal abdominal aorta. No pelvic, mesent cherelle, or retroperitoneal lymphadenopathy is seen. There are degenerative changes involving bilateral sacroiliac joints. Posterior fusion hardware of th e lower lumbar spine noted on the left. There is no worrisome lytic or blastic bone lesion. Multilevel lumbar spine disc space narrowing and vacuum disc formation. IMPRESSION: 1. Hazy areas of ground-glass opacity noted within the right middle lobe and the left lower lobe whi ch may signify atypical infectious pneumonitis, including COVID-19. 2. There is extensive colonic diverticulosis. There is mild wall prominence of the sigmoid colon whi ch may signify a mild degree of diverticulitis in the proper clinical setting. There is no significan t pericolonic fat stranding, however, and thus clinical correlation is required. POS: [id number]
== END 2020-01-16 22:48 | disposition home or self-care (01) ==
LOC: ERS 19:02
DX: K57.32 Diverticulitis of large intestine without perforation or abscess without bleeding (principal); E11.9 Type 2 diabetes mellitus without complications; E78.00 Pure hypercholesterolemia, unspecified; I10 Essential (primary) hypertension; Z79.899 Other long term (current) drug therapy; Z79.4 Long term (current) use of insulin
CPT/HCPCS: 74177; 80053; 83690; 96374; 96375; J2270; J2405; Q9967

== ENCOUNTER 2020-01-25 10:00 | Outpatient (CLI) | payer MEDICARE ==
--- NOTE | 2020-01-25 14:18 | MMO ---
Bilateral MAMMO Bilat Screen [facility]. CLINICAL HISTORY: Patient is 69 years old and is seen for screening. The patient has no family history of breast cancer. The patient has no personal history of cancer. VIEWS: The views performed were: bilateral craniocaudal with tomosynthesis and bilateral mediolateral oblique with tomosynthesis. FILMS COMPARED: The present examination has been compared to a prior imaging study performed at [facility] on 04/20/2011. This study has been interpreted with the assistance of computer-aided detection. MAMMOGRAM FINDINGS: There are scattered fibroglandular densities. Benign calcifications are noted bilaterally. There are no suspicious masses, suspicious calcifications, or new areas of architectural distortion. IMPRESSION: THERE IS NO MAMMOGRAPHIC EVIDENCE OF MALIGNANCY. A ROUTINE FOLLOW-UP MAMMOGRAM IN 1 YEAR IS RECOMMENDED. THE RESULTS OF THIS EXAM WERE SENT TO THE PATIENT. ACR BI-RADS Category 2 - Benign finding MAMMOGRAPHY NOTE: 1. A negative mammogram report should not delay a biopsy if a dominant of clinically suspicious mass is present. 2. Approximately 10% to 15% of breast cancers are not detected by mammography. 3. Adenosis and dense breasts may obscure an underlying neoplasm. Reported by: MARSHALL FLYNN MD Electonically Signed: [id number]
== END 2020-01-25 10:01 | disposition home or self-care (01) ==
LOC: BICMAMMO 10:00
PROVIDERS: ATTEND Family Medicine
DX: Z12.31 Encounter for screening mammogram for malignant neoplasm of breast (principal)
CPT/HCPCS: 77063; 77067

== ENCOUNTER 2020-06-07 08:08 | Outpatient (CLI) | payer MEDICARE ==
[2020-06-07 10:38] LABS: ALT (SGPT) 23 U/L (8-55); AST (SGOT) 20 U/L (5-34); Albumin 4.5 g/dL (3.4-4.8); Alkaline Phosphatase 89 U/L (40-110); Anion Gap 14 mmol/L (10-20); BUN (Urea Nitrogen) 12 mg/dL (9.8-20.1); Bilirubin, Total 0.5 mg/dL (0.2-1.2); Calc. Creatinine Clearance 0 mL/min (70-130); Calcium 9.3 mg/dL (7.8-10.44); Carbon Dioxide 27 mmol/L (23-31); Chloride 101 mmol/L (98-107); Globulin 3.1 g/dL (2.4-3.5); Glucose 200 mg/dL (80-115); Potassium 4.6 mmol/L (3.5-5.1); Protein, Total 7.6 g/dL (5.8-8.1); Sodium 137 mmol/L (136-145)
[2020-06-07 11:29] LABS: #Basophils 0.1 10x3/uL (0.0-0.2); #Eosinphils 0.1 10x3/uL (0.0-0.5); #Monocytes 0.8 10x3/uL (0.0-1.1); #Neutrophils 5.4 10x3/uL (1.5-8.4); %Basophils 0.8 % (0.0-2.0); %Eosinophils 1.1 % (0.0-6.0); %Lymphocytes 30.9 % (18.0-47.0); %Monocytes 8.8 % (0.0-10.0); %Neutrophils 57.8 % (40.0-75.0); Hemoglobin 13.3 g/dL (12.0-15.5); Mean Corpuscular HGB CONC 32.9 g/dL (32.0-36.0); Mean Corpuscular Hemoglobin 30.7 pg (27.0-33.0); Mean Corpuscular Volume 93.3 fl (81.6-98.3); Mean Platelet Volume 12.2 fl (7.4-10.4); Platelet Clumps SLIGHT; Platelet Count 131 10x3/uL (150-450); Platelet Morphology Comment Appears Adequate; RBC Distribution Width 12.8 % (11.5-14.5); RBC Morphology Normal; Red Blood Cell (RBC) Count 4.33 10x6/uL (3.90-5.03); White Blood Cell (WBC) Count 9.3 10x3/uL (3.5-10.5)
[2020-06-07 18:34] LABS: SARS-CoV-2 PCR by NAA Not Detected (NotDetected)
== END 2020-06-07 08:09 | disposition home or self-care (01) ==
LOC: LABBT 08:08
PROVIDERS: ATTEND Internal Medicine Cardiovascular Disease
DX: Z01.812 Encounter for preprocedural laboratory examination (principal); I25.10 Atherosclerotic heart disease of native coronary artery without angina pectoris; Z20.822 Contact with and (suspected) exposure to COVID-19
CPT/HCPCS: 80053; 85025; U0003; U0005; 87635

== ENCOUNTER 2020-06-12 05:55 | Inpatient (IN) | payer MEDICARE ==
[2020-06-12] MEDS ORDERED: Fentanyl 100 MCG/2 ML VIAL ONE (06:44)
[2020-06-12] MEDS ORDERED: Midazolam HCl 2 mg/2 ml Vial ONE (06:44)
[2020-06-12] MEDS ORDERED: Adenosine 6 MG/2 ML VIAL ONE (06:44)
[2020-06-12] MEDS ORDERED: Lidocaine 1% (PF) 30 ML VIAL ONE (06:45)
[2020-06-12] MEDS ORDERED: Nitroglycerin 100MG/250ML BOT 250 ML ONE (06:45)
[2020-06-12] MEDS ORDERED: Heparin 10,000 UNITS/ 10 ML VIAL ONE (07:44)
[2020-06-12] MEDS ORDERED: Nitroglycerin 4.9 GM Bottle ONE (08:27)
[2020-06-12] MEDS ORDERED: SEMAGLUTIDE SC SCH (09:16)
[2020-06-12] MEDS ORDERED: Nitroglycerin 0.4 MG TAB (25 Tab Bottle) SL PRN (09:25)
[2020-06-12] MEDS ORDERED: Acetaminophen/Codeine 30-300mg Tablet ONE (10:12)
[2020-06-12] MEDS ORDERED: Sodium Chloride 0.9% 1,000 ML IV SCH (13:15)
[2020-06-12] MEDS ORDERED: Acetaminophen/Codeine 30-300mg Tablet PO PRN ×2 (13:15)
[2020-06-12] MEDS ORDERED: Iopamidol 370 76% 100 ML VIAL ONE (14:34)
[2020-06-12] MEDS ORDERED: Communication Order-Pharmacy FS SCH (15:10)
[2020-06-12] MEDS: Nitroglycerin 0.4 MG TAB (25 Tab Bottle) SL PRN (17:59)
[2020-06-12] MEDS ORDERED: Enoxaparin Sodium 80 MG/0.8 ML SYRINGE SC SCH (18:30)
[2020-06-12] MEDS ORDERED: Nitroglycerin 2% Ointment 1 INCH/1 GM Packet TOP SCH (18:30)
[2020-06-13] MEDS: Nitroglycerin 0.4 MG TAB (25 Tab Bottle) SL PRN (06:36)
[2020-06-13] MEDS ORDERED: glipiZIDE 10 MG TAB PO SCH (07:30)
[2020-06-13] MEDS ORDERED: Lisinopril 5 MG TAB PO SCH (09:00)
[2020-06-13] MEDS ORDERED: Lantus 1000 UNITS/10 ML VIAL SC SCH (09:00)
[2020-06-13] MEDS ORDERED: Ezetimibe 10 MG TAB PO SCH (09:00)
[2020-06-13] MEDS ORDERED: Aspirin 325 MG TAB PO SCH (09:00)
[2020-06-13] MEDS ORDERED: Rosuvastatin 20 MG TAB PO SCH (09:00)
[2020-06-13] MEDS ORDERED: BIOTIN 10000 MCG PO SCH (09:00)
[2020-06-13] MEDS ORDERED: Nitroglycerin 2% Ointment 1 INCH/1 GM Packet TOP SCH (09:00)
[2020-06-13] MEDS ORDERED: Cholecalciferol (Vitamin D3) 400 UNITS TAB PO SCH (09:00)
[2020-06-13] MEDS ORDERED: Stress 600 With Zinc 1 TAB PO SCH (09:00)
[2020-06-13] MEDS ORDERED: Albumin 5% 500 ML ONE (09:09)
[2020-06-13] MEDS ORDERED: Midazolam HCl 2 mg/2 ml Vial ONE (11:04)
[2020-06-13] MEDS ORDERED: Fentanyl 100 MCG/2 ML VIAL ONE (11:04)
[2020-06-13] MEDS ORDERED: Midazolam HCl 5 mg/5 ml Vial ONE (11:05)
[2020-06-13] MEDS ORDERED: Dexmedetomidine 200 MCG/2 ML VIAL ONE (11:05)
[2020-06-13] MEDS ORDERED: Vecuronium 10 MG VIAL ONE ×2 (11:05→12:32)
[2020-06-13] MEDS ORDERED: Protamine Sulfate 250 MG/25 ML VIAL ONE (12:32)
[2020-06-13] MEDS ORDERED: Thrombin 5000 UNITS/5 ML VIAL ONE (12:32)
[2020-06-13] MEDS ORDERED: Calcium Chloride 1 GM/10 ML Abboject SYRINGE ONE (12:32)
[2020-06-13] MEDS ORDERED: Cardioplegic Soln 1,000 ML BAG ONE (12:32)
[2020-06-13] MEDS ORDERED: Heparin 30,000 units/30 ml VIAL ONE (12:32)
[2020-06-13] MEDS ORDERED: PHENYLEPHRINE-NS 100 MCG/ML 10 ML SYRINGE ONE (12:32)
[2020-06-13] MEDS ORDERED: Papaverine 60 MG/2 ML VIAL ONE (12:32)
[2020-06-13] MEDS ORDERED: Lidocaine 2% PF 100 mg/5 ml Syringe ONE (12:32)
[2020-06-13] MEDS ORDERED: ePHEDrine 50 MG/ML VIAL ONE (12:32)
[2020-06-13] MEDS ORDERED: Aminocaproic Acid 5 GM/20 ML VIAL ONE (12:32)
[2020-06-13] MEDS ORDERED: Potassium Chloride 60 MEQ/30 ML VIAL ONE (12:32)
[2020-06-13] MEDS ORDERED: Lidocaine 1% PF 5 ML VIAL ONE (12:32)
[2020-06-13] MEDS ORDERED: Dexamethasone 20 MG/5 ML VIAL ONE (12:32)
[2020-06-13] MEDS ORDERED: Ketorolac Tromethamine 30 MG/ML VIAL ONE (12:32)
[2020-06-13] MEDS ORDERED: Nitroglycerin 50 MG/250 ML BOT ONE (12:32)
[2020-06-13] MEDS ORDERED: Heparin 5,000 UNITS/ML VIAL ONE (12:32)
[2020-06-13] MEDS ORDERED: Mannitol 12.5 GM/50 ML ONE (12:32)
[2020-06-13] MEDS ORDERED: Sodium Bicarb 50 MEQ/50 ML Abboject 8.4% SYRINGE ONE (12:32)
[2020-06-13] MEDS ORDERED: Glycopyrrolate 0.2 MG/ML 5 ML SYRINGE ONE ×2 (12:32)
[2020-06-13] MEDS ORDERED: Magnesium Sulfate 1 GM/2 ML VIAL ONE (12:32)
[2020-06-13] MEDS ORDERED: Ondansetron PF 4 MG/2 ML Vial ONE (12:32)
[2020-06-13] MEDS ORDERED: Insulin Regular 300 UNITS/3 ML VIAL ONE (12:52)
[2020-06-13] MEDS ORDERED: Promethazine HCl 25 MG/ML VIAL IM PRN (16:18)
[2020-06-13] MEDS ORDERED: Hetastarch 6% 500 ML 500 ML IVPB PRN (16:18)
[2020-06-13] MEDS ORDERED: niCARdipine 25 MG in Sodium Chloride 0.9% 250 ML 240 ML IVPB PRN (16:18)
[2020-06-13] MEDS ORDERED: Norepinephrine 8 MG/0.9% NS 250 ML IVPB PRN (16:18)
[2020-06-13] MEDS ORDERED: DOPamine 400 MG/D5W 250 ML 250 ML IVPB PRN (16:18)
[2020-06-13] MEDS ORDERED: Fentanyl 100 MCG/2 ML VIAL SLOW IVP PRN (16:18)
[2020-06-13] MEDS ORDERED: hydrALAZINE 20 MG/ML VIAL SLOW IVP PRN (16:18)
[2020-06-13] MEDS ORDERED: Morphine 2 MG/ML VIAL SLOW IVP PRN (16:18)
[2020-06-13] MEDS ORDERED: Guaifenesin DM 100-10/5 ML UDCUP PO PRN (16:18)
[2020-06-13] MEDS ORDERED: Mag-Al 1200 mg/1200 mg/30 ML UDCUP PO PRN (16:18)
[2020-06-13] MEDS ORDERED: Potassium Chloride 20 MEQ/100 ML PREMIX BAG IVPB PRN (16:18)
[2020-06-13] MEDS ORDERED: Nitroglycerin 50 MG/250 ML BOT 250 ML IVPB PRN (16:18)
[2020-06-13] MEDS ORDERED: Bisacodyl 10 MG SUPP PR PRN (16:18)
[2020-06-13] MEDS ORDERED: Acetaminophen 325 MG TAB PO PRN (16:18)
[2020-06-13] MEDS ORDERED: Bisacodyl 5 MG TAB PO PRN (16:18)
[2020-06-13] MEDS ORDERED: HYDROcodone/Acetaminophen 5/325 mg Tablet PO PRN (16:18)
[2020-06-13] MEDS ORDERED: Post-Op Insulin Drip Protocol IVPB ONE (16:18)
[2020-06-13] MEDS ORDERED: Insulin Regular 300 UNITS/3 ML VIAL SC PRN (16:30)
[2020-06-13] MEDS ORDERED: HUMULIN R 100 UNITS in Sodium Chloride 0.9% 100 ML IVPB SCH (16:30)
[2020-06-13] MEDS ORDERED: Dextrose 5% in Water 1,000 ML IV PRN (16:30)
[2020-06-13] MEDS ORDERED: Magnesium 2 GM/50 ML 2 GM in Premix Bag 1 BAG IVPB SCH (16:30)
[2020-06-13] MEDS ORDERED: Dextrose 50% Abboject 50 ML SYRINGE SLOW IVP PRN (16:30)
[2020-06-13 16:31] LABS: #Eosinphils 0.1 thou/uL (0.0-0.7); #Lymphocytes 1.7 thou/uL (1.20-3.40); #Monocytes 0.6 thou/uL (0.11-0.59); #Neutrophils 11.8 thou/uL (1.40-6.50); %Basophils 0.2 % (0.0-1.0); %Lymphocytes 12.2 % (21.0-51.0); %Monocytes 3.9 % (0.0-10.0); %Neutrophils 82.7 % (42.0-75.0); Hemoglobin 11.7 g/dL (12.0-16.0); Mean Corpuscular Volume 93.9 fL (78.0-98.0); Mean Platelet Volume 7.8 fL (7.4-10.4); Platelet Count 132 thou/uL (130-400); RBC Distribution Width 12.5 % (11.5-14.5); Red Blood Cell (RBC) Count 3.79 mill/uL (4.20-5.40); White Blood Cell (WBC) Count 14.3 thou/uL (4.8-10.8)
[2020-06-13 16:37] LABS: INR-International Normal Ratio 1.3; PTT 31.1 sec (22.9-36.1); Prothrombin Time 16.2 sec (12.0-14.7)
[2020-06-13] MEDS: Lactated Ringer's 1,000 ML IV SCH (16:40)
[2020-06-13] MEDS: Fentanyl 100 MCG/2 ML VIAL SLOW IVP PRN ×2 (16:44→19:42)
[2020-06-13 16:52] LABS: Anion Gap 9 mmol/L (10-20); BUN (Urea Nitrogen) 10 mg/dL (9.8-20.1); Calc. Creatinine Clearance 83 mL/min (70-130); Calcium 8.4 mg/dL (7.8-10.44); Carbon Dioxide 26 mmol/L (23-31); Chloride 109 mmol/L (98-107); Glucose 165 mg/dL (80-115); Potassium 4.1 mmol/L (3.5-5.1); Sodium 140 mmol/L (136-145)
[2020-06-13] MEDS: Ketorolac Tromethamine 30 MG/ML VIAL IVP SCH ×2 (18:06→23:17)
[2020-06-13] MEDS: Famotidine/PF 20 mg/2ml Vial SLOW IVP SCH (20:29)
[2020-06-13] MEDS: CEFAZOLIN 2 GM in Premix Bag 1 BAG IVPB SCH (20:29)
[2020-06-13] MEDS: HYDROcodone/Acetaminophen 5/325 mg Tablet PO PRN (20:44)
[2020-06-13 22:09] LABS: Hemoglobin 10.4 g/dL (12.0-16.0)
[2020-06-13 22:24] LABS: Potassium 4.8 mmol/L (3.5-5.1)
[2020-06-14] MEDS: Fentanyl 100 MCG/2 ML VIAL SLOW IVP PRN (02:46)
[2020-06-14 04:25] LABS: #Lymphocytes 1.5 thou/uL (1.20-3.40); #Monocytes 0.6 thou/uL (0.11-0.59); #Neutrophils 11.6 thou/uL (1.40-6.50); %Basophils 0.2 % (0.0-1.0); %Eosinophils 0.2 % (0.0-10.0); %Lymphocytes 10.7 % (21.0-51.0); %Monocytes 4.1 % (0.0-10.0); %Neutrophils 84.8 % (42.0-75.0); Hemoglobin 10.1 g/dL (12.0-16.0); Mean Corpuscular Hemoglobin 32.3 pg (27.0-31.0); Mean Platelet Volume 8.3 fL (7.4-10.4); Platelet Count 139 thou/uL (130-400); RBC Distribution Width 12.3 % (11.5-14.5); Red Blood Cell (RBC) Count 3.14 mill/uL (4.20-5.40); White Blood Cell (WBC) Count 13.7 thou/uL (4.8-10.8)
[2020-06-14 04:54] LABS: Anion Gap 16 mmol/L (10-20); BUN (Urea Nitrogen) 13 mg/dL (9.8-20.1); Calc. Creatinine Clearance 85 mL/min (70-130); Calcium 8.3 mg/dL (7.8-10.44); Carbon Dioxide 21 mmol/L (23-31); Chloride 105 mmol/L (98-107); Glucose 152 mg/dL (80-115); Potassium 4.6 mmol/L (3.5-5.1); Sodium 137 mmol/L (136-145)
[2020-06-14] MEDS: CEFAZOLIN 2 GM in Premix Bag 1 BAG IVPB SCH ×2 (05:46→12:36)
[2020-06-14] MEDS: Ketorolac Tromethamine 30 MG/ML VIAL IVP SCH ×3 (05:46→18:07)
[2020-06-14] MEDS: Ondansetron PF 4 MG/2 ML Vial IVP PRN ×2 (06:22→16:43)
[2020-06-14] MEDS: Lactated Ringer's 1,000 ML IV SCH (07:00)
[2020-06-14] MEDS: HYDROcodone/Acetaminophen 5/325 mg Tablet PO PRN ×2 (09:37→16:44)
[2020-06-14] MEDS: Aspirin 325 MG TAB PO SCH (09:39)
[2020-06-14] MEDS: Famotidine/PF 20 mg/2ml Vial SLOW IVP SCH (09:39)
[2020-06-14] MEDS: Polyethylene Glycol 3350 17 GM Packet PO SCH (09:43)
[2020-06-14] MEDS ORDERED: Lantus 1000 UNITS/10 ML VIAL SC SCH (11:30)
[2020-06-14] MEDS ORDERED: Nitroglycerin 0.4 MG TAB (25 Tab Bottle) SL PRN (14:16)
[2020-06-14] MEDS ORDERED: diphenhydrAMINE 25 MG CAP PO PRN (14:16)
[2020-06-14] MEDS ORDERED: Mineral Oil ENEMA PR PRN (14:16)
[2020-06-14] MEDS ORDERED: Dextrose 5% in Water 1,000 ML IV PRN (14:16)
[2020-06-14] MEDS ORDERED: Dextrose 50% Abboject 50 ML SYRINGE SLOW IVP PRN (14:16)
[2020-06-14] MEDS ORDERED: Zolpidem Tartrate 5 MG TAB PO PRN (14:16)
[2020-06-14 15:12] VITALS: BMI 29.3
[2020-06-14] MEDS: Insulin Regular 300 UNITS/3 ML VIAL SC PRN (18:08)
[2020-06-14] MEDS: Rosuvastatin 20 MG TAB PO SCH (20:38)
[2020-06-14] MEDS: Enoxaparin Sodium 30 MG/0.3 ML SYRINGE SC SCH (20:39)
[2020-06-14] MEDS: Famotidine 20 MG TAB PO SCH (20:39)
[2020-06-14] MEDS: Lantus 1000 UNITS/10 ML VIAL SC SCH (20:39)
[2020-06-14] MEDS ORDERED: Insulin Glargine 10 UNITS in Pre-Filled Syringe 1 EACH SC SCH (21:00)
[2020-06-15] MEDS: Ketorolac Tromethamine 30 MG/ML VIAL IVP SCH ×4 (05:08→17:26)
[2020-06-15] MEDS: Insulin Regular 300 UNITS/3 ML VIAL SC PRN ×3 (06:00→17:25)
[2020-06-15] MEDS: Potassium Chloride 10 MEQ TAB PO SCH (07:52)
[2020-06-15] MEDS: Famotidine 20 MG TAB PO SCH ×2 (07:53→20:02)
[2020-06-15] MEDS: Aspirin 325 MG TAB PO SCH (07:53)
[2020-06-15] MEDS: Furosemide 40 MG TAB PO SCH (07:53)
[2020-06-15] MEDS: Polyethylene Glycol 3350 17 GM Packet PO SCH (07:54)
[2020-06-15] MEDS ORDERED: Dronedarone HCl 400 MG TAB PO SCH (14:45)
[2020-06-15] MEDS: Dronedarone HCl 400 MG TAB PO SCH (17:26)
[2020-06-15] MEDS: Rosuvastatin 20 MG TAB PO SCH (20:01)
[2020-06-15] MEDS: Lantus 1000 UNITS/10 ML VIAL SC SCH (20:04)
[2020-06-15] MEDS: Enoxaparin Sodium 30 MG/0.3 ML SYRINGE SC SCH (20:06)
[2020-06-16] MEDS: Ketorolac Tromethamine 30 MG/ML VIAL IVP SCH ×4 (01:10→17:28)
[2020-06-16] MEDS: Insulin Regular 300 UNITS/3 ML VIAL SC PRN ×3 (05:49→17:29)
[2020-06-16] MEDS: Dronedarone HCl 400 MG TAB PO SCH ×2 (08:19→17:28)
[2020-06-16] MEDS: Potassium Chloride 10 MEQ TAB PO SCH (08:19)
[2020-06-16] MEDS: Aspirin 325 MG TAB PO SCH (08:19)
[2020-06-16] MEDS: Famotidine 20 MG TAB PO SCH ×2 (08:20→20:44)
[2020-06-16] MEDS: Polyethylene Glycol 3350 17 GM Packet PO SCH (08:20)
[2020-06-16] MEDS: Furosemide 40 MG TAB PO SCH (08:20)
[2020-06-16] MEDS: Apixaban 5 MG TAB PO SCH (20:43)
[2020-06-16] MEDS: Rosuvastatin 20 MG TAB PO SCH (20:44)
[2020-06-16] MEDS: Lantus 1000 UNITS/10 ML VIAL SC SCH (20:54)
[2020-06-17] MEDS: Insulin Regular 300 UNITS/3 ML VIAL SC PRN ×2 (06:49→11:11)
[2020-06-17] MEDS ORDERED: Dronedarone HCl 400 MG TAB PO SCH (08:00)
[2020-06-17] MEDS: Famotidine 20 MG TAB PO SCH (08:57)
[2020-06-17] MEDS: Apixaban 5 MG TAB PO SCH (08:57)
[2020-06-17] MEDS: Polyethylene Glycol 3350 17 GM Packet PO SCH (08:58)
[2020-06-17] MEDS ORDERED: Aspirin 81 mg Enteric Coated Tablet PO SCH (09:00)
[2020-06-17] MEDS ORDERED: glipiZIDE 10 MG TAB PO SCH (09:00)
[2020-06-17 11:15] VITALS: BP 134/85; TEMP 99
[2020-06-17] MEDS: Dronedarone HCl 400 MG TAB PO SCH (11:18)
[2020-06-17] MEDS ORDERED: Lantus 1000 UNITS/10 ML VIAL SC SCH (21:00)
[2020-06-24 15:17] LABS: Actual Bicarbonate (HCO3a) 23.1 mEq/L (22-28); Analyzer IN Cardio OR; Base Excess (BEa) -1.2 mEq/L (-2.0 to +3.0); CO2 Tension 36.9 mmHg (35.0-45.0); Carboxyhemoglobin (COHb) 0.3 gm% (0.0-3.0); Hemoglobin (Hb) 11.8 g/dL (12.0-16.0); Potassium - ABG Lab 3.93 mmol/L (3.70-5.30); pH, Arterial 7.41 (7.35-7.45)
[2020-06-24 15:17] LABS: Actual Bicarbonate (HCO3a) 21.8 mEq/L (22-28); Analyzer IN Cardio OR; Base Excess (BEa) -1.2 mEq/L (-2.0 to +3.0); CO2 Tension 31.3 mmHg (35.0-45.0); Calcium, Ionized (arterial) 1.15 mmol/L (1.12-1.30); Carboxyhemoglobin (COHb) 0.7 gm% (0.0-3.0); Hemoglobin (Hb) 12.4 g/dL (12.0-16.0); O2 Tension (PaO2), arterial 392.4 mmHg (> 80.0); Potassium - ABG Lab 4.84 mmol/L (3.70-5.30); pH, Arterial 7.46 (7.35-7.45)
[2020-06-24 15:18] LABS: Analyzer IN Cardio OR; Base Excess (BEa) -0.4 mEq/L (-2.0 to +3.0); CO2 Tension 38.2 mmHg (35.0-45.0); Calcium, Ionized (arterial) 1.12 mmol/L (1.12-1.30); Carboxyhemoglobin (COHb) 0.3 gm% (0.0-3.0); Hemoglobin (Hb) 10.7 g/dL (12.0-16.0); pH, Arterial 7.42 (7.35-7.45)
[2020-06-24 15:18] LABS: Actual Bicarbonate (HCO3a) 25.1 mEq/L (22-28); Analyzer IN Cardio OR; Base Excess (BEa) -1.1 mEq/L (-2.0 to +3.0); CO2 Tension 49.9 mmHg (35.0-45.0); Calcium, Ionized (arterial) 1.01 mmol/L (1.12-1.30); Carboxyhemoglobin (COHb) 0.8 gm% (0.0-3.0); Hemoglobin (Hb) 8.2 g/dL (12.0-16.0); Potassium - ABG Lab 4.71 mmol/L (3.70-5.30); pH, Arterial 7.32 (7.35-7.45)
[2020-06-24 15:18] LABS: Actual Bicarbonate (HCO3a) 25.6 mEq/L (22-28); Analyzer IN Cardio OR; Base Excess (BEa) 1.3 mEq/L (-2.0 to +3.0); CO2 Tension 39.3 mmHg (35.0-45.0); Calcium, Ionized (arterial) 0.76 mmol/L (1.12-1.30); Carboxyhemoglobin (COHb) 1.1 gm% (0.0-3.0); Hemoglobin (Hb) 7.3 g/dL (12.0-16.0); O2 Tension (PaO2), arterial 425.8 mmHg (> 80.0); Potassium - ABG Lab 3.72 mmol/L (3.70-5.30); pH, Arterial 7.43 (7.35-7.45)
[2020-06-24 15:19] LABS: Puncture Site Arterial Line
[2020-06-24 15:19] LABS: Puncture Site Arterial Line
[2020-06-24 15:19] LABS: Puncture Site Arterial Line
[2020-06-24 15:20] LABS: Puncture Site Arterial Line
[2020-06-24 15:21] LABS: Puncture Site Arterial Line
== END 2020-06-17 13:30 | disposition home or self-care (01) | DRG 234 ==
LOC: SDC 05:55 → 2NO 09:07 → CCU 06-13 11:26 → 2NO 06-14 13:49
PROVIDERS: ADMIT Internal Medicine Cardiovascular Disease; ATTEND Internal Medicine Cardiovascular Disease
PROC: 4A023N7 Measurement of Cardiac Sampling and Pressure, Left Heart, Percutaneous Approach (ICD-10-PCS; principal; 2020-06-12)
PROC: B2111ZZ Fluoroscopy of Multiple Coronary Arteries using Low Osmolar Contrast (ICD-10-PCS; 2020-06-12)
PROC: B2151ZZ Fluoroscopy of Left Heart using Low Osmolar Contrast (ICD-10-PCS; 2020-06-12)
PROC: 4A033BC Measurement of Arterial Pressure, Coronary, Percutaneous Approach (ICD-10-PCS; 2020-06-12)
PROC: 02100Z9 Bypass Coronary Artery, One Artery from Left Internal Mammary, Open Approach (ICD-10-PCS; 2020-06-13)
PROC: 021109W Bypass Coronary Artery, Two Arteries from Aorta with Autologous Venous Tissue, Open Approach (ICD-10-PCS; 2020-06-13)
PROC: 06BQ4ZZ Excision of Left Saphenous Vein, Percutaneous Endoscopic Approach (ICD-10-PCS; 2020-06-13)
PROC: 5A1221Z Performance of Cardiac Output, Continuous (ICD-10-PCS; 2020-06-13)
DX: I25.10 Atherosclerotic heart disease of native coronary artery without angina pectoris (principal); T82.855A Stenosis of coronary artery stent, initial encounter; Z96.651 Presence of right artificial knee joint; I10 Essential (primary) hypertension; Z20.822 Contact with and (suspected) exposure to COVID-19; E11.9 Type 2 diabetes mellitus without complications; E78.2 Mixed hyperlipidemia; F32.9 Major depressive disorder, single episode, unspecified; K21.9 Gastro-esophageal reflux disease without esophagitis; G89.29 Other chronic pain; Y84.8 Other medical procedures as the cause of abnormal reaction of the patient, or of later complication, without mention of misadventure at the time of the procedure; I48.91 Unspecified atrial fibrillation; Z88.1 Allergy status to other antibiotic agents; Z88.8 Allergy status to other drugs, medicaments and biological substances; Z90.710 Acquired absence of both cervix and uterus; Z86.73 Personal history of transient ischemic attack (TIA), and cerebral infarction without residual deficits; I25.2 Old myocardial infarction; Z95.5 Presence of coronary angioplasty implant and graft; Z79.01 Long term (current) use of anticoagulants; Z79.84 Long term (current) use of oral hypoglycemic drugs; Z79.899 Other long term (current) drug therapy; Z90.49 Acquired absence of other specified parts of digestive tract
CPT/HCPCS: 36415; 36416; 36430; 71045; 76942; 80048; 82805; 85025; 85610; 85730; 86850; 86900; 86901; 93005; 93010; 93458; 93798; 97139; 99152; 99153; J0153; J0690; J1100; J1642; J1644; J1650; J1815; J1885; J2001; J2150; J2250; J2405; J2440; J2720; J3010; J3370; J3475; J3480; J3490; P9045; Q9967; S0017; S0028

== ENCOUNTER 2021-12-29 15:34 | Inpatient (IN) | payer MEDICARE ==
[~2021-12-29 15:34] MED LIST changes: +Iopamidol 370 76% 100 ML VIAL ONE; -Iopamidol-370 76% 500 ML 1 ML ONE
[2021-12-29 17:39] LABS: #Basophils 0.1 thou/uL (0.0-0.2); #Eosinphils 0.1 thou/uL (0.0-0.7); #Lymphocytes 4.1 thou/uL (1.20-3.40); #Monocytes 0.7 thou/uL (0.11-0.59); #Neutrophils 6.9 thou/uL (1.40-6.50); %Basophils 0.8 % (0.0-1.0); %Eosinophils 1.1 % (0.0-10.0); %Lymphocytes 34.6 % (21.0-51.0); %Monocytes 6.2 % (0.0-10.0); %Neutrophils 57.4 % (42.0-75.0); Hemoglobin 12.8 g/dL (12.0-16.0); Mean Corpuscular HGB CONC 32.5 g/dL (32.0-36.0); Mean Corpuscular Volume 95.4 fL (78.0-98.0); Mean Platelet Volume 8.3 fL (7.4-10.4); Platelet Count 236 thou/uL (130-400); RBC Distribution Width 12.3 % (11.5-14.5); Red Blood Cell (RBC) Count 4.12 mill/uL (4.20-5.40); White Blood Cell (WBC) Count 11.9 thou/uL (4.8-10.8)
[2021-12-29] MEDS ORDERED: Ondansetron PF 4 MG/2 ML Vial ONE (17:52)
[2021-12-29 18:17] LABS: ALT (SGPT) 28 U/L (8-55); AST (SGOT) 28 U/L (5-34); Albumin 4.5 g/dL (3.4-4.8); Alkaline Phosphatase 97 U/L (40-110); Anion Gap 15 mmol/L (10-20); BUN (Urea Nitrogen) 28 mg/dL (9.8-20.1); Bilirubin, Total 0.4 mg/dL (0.2-1.2); Calc. Creatinine Clearance 0 mL/min (70-130); Calcium 10.1 mg/dL (7.8-10.44); Carbon Dioxide 26 mmol/L (23-31); Chloride 103 mmol/L (98-107); Estimated GFR 35; Globulin 4.2 g/dL (2.4-3.5); Glucose 69 mg/dL (83-110); Lipase 64 U/L (8-78); Potassium 4.8 mmol/L (3.5-5.1); Protein, Total 8.7 g/dL (5.8-8.1); Sodium 139 mmol/L (136-145)
[2021-12-29 20:08] LABS: Bacteria/HPF None Seen HPF (None Seen); Bilirubin Negative (Negative); Blood, Urine Negative (Negative); Clarity Clear (Clear); Glucose, Urine (Dipstick) Normal (Negative); Ketone, Urine Negative (Negative); Leukocyte Negative Leu/uL (Negative); Nitrite Negative (Negative); Protein, Urine (Dipstick) Negative (Neg-Trace); RBC/HPF 0-3 HPF (0-3); Squamous Epithelial 0-3 HPF (0-3); Urobilinogen Normal mg/dL (Less than 2); WBC/HPF 0-3 HPF (0-3); pH, Urine 5.5 (5.0-9.0)
[2021-12-29 20:09] LABS: Specific Gravity, Urine 1.049 (1.002-1.036)
[2021-12-29] MEDS ORDERED: Morphine 4 MG/ML VIAL ONE (22:25)
[2021-12-29] MEDS ORDERED: Acetaminophen 325 MG TAB PO PRN (22:34)
[2021-12-29] MEDS ORDERED: Ondansetron PF 4 MG/2 ML Vial IVP PRN (22:34)
[2021-12-29] MEDS ORDERED: Dextrose 5% in Water 1,000 ML IV PRN (22:39)
[2021-12-29] MEDS ORDERED: Dextrose 50% Abboject 50 ML SYRINGE SLOW IVP PRN (22:39)
[2021-12-29] MEDS ORDERED: Piperacillin/Tazobactam 3.375 GM VIAL ONE (23:47)
[2021-12-30] MEDS: Sodium Chloride 0.9% 1,000 ML IV SCH ×3 (01:26→20:13)
[2021-12-30 02:40] VITALS: BMI 30.2
[2021-12-30] MEDS: Morphine 4 MG/ML VIAL SLOW IVP PRN ×2 (04:25→17:21)
[2021-12-30] MEDS: Piperacillin/Tazobactam 3.375 GM in Sodium Chloride 0.9% 100 ML IVPB SCH ×3 (04:29→20:07)
[2021-12-30 04:50] LABS: #Basophils 0.1 thou/uL (0.0-0.2); #Eosinphils 0.2 thou/uL (0.0-0.7); #Lymphocytes 3.5 thou/uL (1.20-3.40); #Monocytes 0.8 thou/uL (0.11-0.59); #Neutrophils 6.1 thou/uL (1.40-6.50); %Basophils 0.7 % (0.0-1.0); %Eosinophils 2.2 % (0.0-10.0); %Lymphocytes 32.4 % (21.0-51.0); %Monocytes 7.2 % (0.0-10.0); %Neutrophils 57.5 % (42.0-75.0); Mean Corpuscular HGB CONC 32.2 g/dL (32.0-36.0); Mean Corpuscular Hemoglobin 31.2 pg (27.0-31.0); Mean Platelet Volume 8.1 fL (7.4-10.4); Platelet Count 203 thou/uL (130-400); RBC Distribution Width 12.3 % (11.5-14.5); Red Blood Cell (RBC) Count 3.83 mill/uL (4.20-5.40); White Blood Cell (WBC) Count 10.7 thou/uL (4.8-10.8)
[2021-12-30 05:41] LABS: Anion Gap 13 mmol/L (10-20); BUN (Urea Nitrogen) 19 mg/dL (9.8-20.1); Calc. Creatinine Clearance 55 mL/min (70-130); Calcium 8.9 mg/dL (7.8-10.44); Carbon Dioxide 24 mmol/L (23-31); Chloride 105 mmol/L (98-107); Estimated GFR 51; Glucose 119 mg/dL (83-110); Potassium 4.4 mmol/L (3.5-5.1); Sodium 138 mmol/L (136-145)
[2021-12-30] MEDS ORDERED: Enoxaparin Sodium 40 MG/0.4 ML SYRINGE SC SCH (09:00)
[2021-12-30] MEDS: Heparin 5,000 UNITS/ML VIAL SC SCH ×2 (09:06→20:07)
[2021-12-30] MEDS ORDERED: HumaLOG 300 UNITS/3 ML VIAL SC PRN (13:51)
[2021-12-30] MEDS: Insulin Glargine 30 UNITS/0.3 ML VIAL SC SCH (20:08)
[2021-12-30] MEDS ORDERED: Rosuvastatin 20 MG TAB PO SCH (21:00)
[2021-12-31] MEDS: Piperacillin/Tazobactam 3.375 GM in Sodium Chloride 0.9% 100 ML IVPB SCH ×2 (04:20→11:54)
[2021-12-31 04:53] LABS: #Basophils 0.1 thou/uL (0.0-0.2); #Eosinphils 0.3 thou/uL (0.0-0.7); #Lymphocytes 2.9 thou/uL (1.20-3.40); #Monocytes 0.6 thou/uL (0.11-0.59); #Neutrophils 3.9 thou/uL (1.40-6.50); %Basophils 0.9 % (0.0-1.0); %Eosinophils 3.3 % (0.0-10.0); %Lymphocytes 38.1 % (21.0-51.0); %Monocytes 7.3 % (0.0-10.0); %Neutrophils 50.4 % (42.0-75.0); Hemoglobin 12.1 g/dL (12.0-16.0); Mean Corpuscular HGB CONC 31.5 g/dL (32.0-36.0); Mean Corpuscular Hemoglobin 30.4 pg (27.0-31.0); Mean Corpuscular Volume 96.7 fL (78.0-98.0); Mean Platelet Volume 7.9 fL (7.4-10.4); Platelet Count 196 thou/uL (130-400); RBC Distribution Width 12.3 % (11.5-14.5); Red Blood Cell (RBC) Count 3.97 mill/uL (4.20-5.40); White Blood Cell (WBC) Count 7.7 thou/uL (4.8-10.8)
[2021-12-31 05:57] LABS: Anion Gap 14 mmol/L (10-20); BUN (Urea Nitrogen) 10 mg/dL (9.8-20.1); Calc. Creatinine Clearance 65 mL/min (70-130); Calcium 8.8 mg/dL (7.8-10.44); Carbon Dioxide 24 mmol/L (23-31); Chloride 106 mmol/L (98-107); Estimated GFR 62; Glucose 97 mg/dL (83-110); Potassium 4.5 mmol/L (3.5-5.1); Sodium 139 mmol/L (136-145)
[2021-12-31] MEDS ORDERED: Aspirin 81 mg Enteric Coated Tablet PO SCH (09:00)
[2021-12-31] MEDS ORDERED: Amlodipine 5 MG TAB PO SCH (09:00)
[2021-12-31] MEDS: Heparin 5,000 UNITS/ML VIAL SC SCH (09:34)
[2021-12-31] MEDS: Insulin Glargine 30 UNITS/0.3 ML VIAL SC SCH (09:35)
[2021-12-31] MEDS: Sodium Chloride 0.9% 1,000 ML IV SCH (09:40)
[2021-12-31 09:42] VITALS: BP 122/75
[2021-12-31 09:57] VITALS: TEMP 98
[2022-01-02] MEDS ORDERED: FLU VACC QS2022-23(65YR UP)/PF 240 MCG/0.7 ML SYRINGE IM ONE (09:00)
== END 2021-12-31 14:09 | disposition home or self-care (01) | DRG 392 ==
LOC: ERS 15:34 → MSONC 22:34
PROVIDERS: ADMIT Internal Medicine; ATTEND Internal Medicine
DX: K57.32 Diverticulitis of large intestine without perforation or abscess without bleeding (principal); N17.9 Acute kidney failure, unspecified; Z20.822 Contact with and (suspected) exposure to COVID-19; I25.10 Atherosclerotic heart disease of native coronary artery without angina pectoris; E11.9 Type 2 diabetes mellitus without complications; I10 Essential (primary) hypertension; E78.5 Hyperlipidemia, unspecified; E86.0 Dehydration; Z88.1 Allergy status to other antibiotic agents; Z88.8 Allergy status to other drugs, medicaments and biological substances; Z79.899 Other long term (current) drug therapy; Z79.84 Long term (current) use of oral hypoglycemic drugs; Z79.4 Long term (current) use of insulin; Z79.82 Long term (current) use of aspirin; Z79.01 Long term (current) use of anticoagulants; Z90.49 Acquired absence of other specified parts of digestive tract; Z90.89 Acquired absence of other organs; Z90.710 Acquired absence of both cervix and uterus; Z95.1 Presence of aortocoronary bypass graft; Z95.5 Presence of coronary angioplasty implant and graft; Z98.890 Other specified postprocedural states; Z82.3 Family history of stroke; Z87.891 Personal history of nicotine dependence
CPT/HCPCS: 36415; 36416; 74177; 80048; 80053; 81003; 83690; 85025; 96374; 96375; J1644; J1815; J2270; J2405; J2543; J3490; J7050; Q9967; U0003; U0005

== ENCOUNTER 2023-09-24 09:17 | Outpatient (CLI) | payer OTHER | END 2023-09-24 09:18 | disposition home or self-care (01) | LOC: BICMAMMO 09:17 | PROVIDERS: ATTEND Family Medicine | DX: Z12.31 Encounter for screening mammogram for malignant neoplasm of breast (principal); Z13.820 Encounter for screening for osteoporosis; M85.851 Other specified disorders of bone density and structure, right thigh; M85.852 Other specified disorders of bone density and structure, left thigh; Z78.0 Asymptomatic menopausal state | CPT/HCPCS: 77063; 77067; 77080 ==